=== PATIENT | female | born 1970 | race Caucasian/White ===

== ENCOUNTER 2016-11-17 00:01 | Outpatient (RCR) | payer MEDICARE, MEDICAID, SELFPAY ==
[2014-10-26 10:10] VITALS: BP 123/89
[~2016-11-17 00:01] MED LIST: BENZ1TAB10 PO; BUSP10TA23 PO; CIPR500S4 PO; CLON.3 PO; CLON2 PO; DOCU250C16 PO; DOCU250C91 PO; FOLI1 PO; GABA-533 PO; GABA600T PO; LEVO112T4 PO; LEVO50TA11 PO; LISI-662 PO; LORA0.5T2 PO; METO50 PO; NYST30CR9 TP; OMEP20 PO; PALIPERIDONE IM; PARO10TA89 PO; PROM5SYR2 PO; QUET200XR PO; SULF-88 PO; ZOLP10TA7 PO; [UNRECOGNIZED DRUG - CODE] MC
== END 2016-12-16 | disposition home or self-care (01) ==
LOC: IOPBV 00:01
PROVIDERS: ATTEND Psychiatry & Neurology Psychiatry
DX: F32.9 Major depressive disorder, single episode, unspecified (principal); F41.9 Anxiety disorder, unspecified; E03.9 Hypothyroidism, unspecified; F14.21 Cocaine dependence, in remission; F12.21 Cannabis dependence, in remission
CPT/HCPCS: 90853

== ENCOUNTER → 2019-01-14 | Outpatient (CLI) | payer MEDICARE, OTHER ==
[~2019-01-14] MED LIST changes: -CIPR500S4 PO; -CLON.3 PO; -CLON2 PO; -DOCU250C16 PO; -DOCU250C91 PO; -GABA600T PO; -LEVO50TA11 PO; +LORA-999 PO; -LORA0.5T2 PO; -METO50 PO; -NYST30CR9 TP; -PALIPERIDONE IM; -PROM5SYR2 PO; +QUET200T5 PO; -QUET200XR PO; -SULF-88 PO; -[UNRECOGNIZED DRUG - CODE] MC
[2019-01-15 12:36] LABS: CHOL/HDL RATIO 4.2 (3.9-5.7)
== END | disposition home or self-care (01) ==
LOC: LABMN 10:40
PROVIDERS: ATTEND Psychiatry & Neurology Psychiatry
DX: F25.0 Schizoaffective disorder, bipolar type (principal)

== ENCOUNTER 2022-05-16 17:52 | Emergency (ER) | payer MEDICARE, OTHER ==
[~2022-05-16 17:52] MED LIST changes: -BENZ1TAB10 PO; +BENZ1TAB96 PO; +DIVA-85 PO; +FOLI-130 PO; -FOLI1 PO; +GABA-1181 PO; +GABA-1201 PO; -GABA-533 PO; +ISON300 PO; +LEVO25TA9 PO; -LISI-662 PO; +LISI-894 PO; +NALT50TA PO; +OLAN10TA22 PO; +OMEG-135 PO; +PYRI-6 PO; -ZOLP10TA7 PO; +ZOLP10TA8 PO
== END 2022-05-16 19:06 | disposition left against medical advice (07) ==
LOC: EMS 18:00
DX: Z53.21 Procedure and treatment not carried out due to patient leaving prior to being seen by health care provider (principal)

== ENCOUNTER 2024-12-09 13:30 | Emergency (ER) | payer MEDICARE, MEDICAID ==
[~2024-12-09] VITALS: Ht 167.6 cm; Wt 88.0 kg
[~2024-12-09 13:30] MED LIST changes: +BENZ-247 PO; -BENZ1TAB96 PO; -ISON300 PO; +ISON300T90 PO; -LORA-999 PO; +LORA0.5T20 PO; -NALT50TA PO; +NALT50TA6 PO; +OMEP-148 PO; -OMEP20 PO; -PYRI-6 PO; +PYRI-9 PO; +ZOLP-162 PO; -ZOLP10TA8 PO
[2024-12-09 14:40] LABS: APPEARANCE,URINE CLEAR (CLEAR); GLUCOSE, URINE (UA) NEGATIVE (NEGATIVE); LEUKOCYTE ESTERASE ,URINE MODERATE (NEGATIVE); NITRATE,URINE NEGATIVE (NEGATIVE); OCCULT BLOOD,URINE NEGATIVE (NEGATIVE); PH,URINE DRUG SCREEN 6.5 (5.0-8.0); SPECIFIC GRAVITIY, URINE 1.006 (1.003-1.030)
[2024-12-09 14:48] LABS: ALCOHOL, URINE DRUG SCREEN NEGATIVE (NEGATIVE); AMPHET/METH SCREEN,URINE NEGATIVE (NEGATIVE); BARBITURATE SCREEN, URINE NEGATIVE (NEGATIVE); CANNABINOID SCREEN,URINE POSITIVE (NEGATIVE); COCAINE SCREEN,URINE NEGATIVE (NEGATIVE); METHADONE SCREEN, URINE NEGATIVE (NEGATIVE)
[2024-12-09 14:51] LABS: SQUAMOUS EPITHELIAL CELL,UR Few /LPF (None Seen)
[2024-12-09] MEDS ORDERED: HYDR25TA83 PO (16:13)
[2024-12-09] MEDS ORDERED: LORA0.5T20 PO (16:38)
[2024-12-09 17:00] VITALS: BP 122/78; PULSE 86; RESP 20; TEMP 97.9; O2SAT 98
== END 2024-12-09 17:47 | disposition home or self-care (01) ==
LOC: EMS 13:32
DX: T62.0X1A Toxic effect of ingested mushrooms, accidental (unintentional), initial encounter (principal); E03.9 Hypothyroidism, unspecified; F31.9 Bipolar disorder, unspecified; F17.210 Nicotine dependence, cigarettes, uncomplicated; F41.9 Anxiety disorder, unspecified; F12.90 Cannabis use, unspecified, uncomplicated; R00.2 Palpitations; F15.90 Other stimulant use, unspecified, uncomplicated; F14.90 Cocaine use, unspecified, uncomplicated; Z79.899 Other long term (current) drug therapy; Z88.0 Allergy status to penicillin; Z90.710 Acquired absence of both cervix and uterus; Y92.89 Other specified places as the place of occurrence of the external cause
CPT/HCPCS: 80307; 81001; 87086; 93005; 99284